=== PATIENT | male | born 1990 | race Caucasian/White ===

== ENCOUNTER 2017-01-02 12:20 | Emergency (ER) | payer OTHER ==
[~2017-01-02] VITALS: Ht 193 cm; Wt 109.1 kg
[2017-01-02 12:30] VITALS: BP 129/76; PULSE 75; RESP 12; O2SAT 97
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
== END 2017-01-02 13:24 | disposition home or self-care (01) ==
LOC: SED 12:20
DX: S60.942A Unspecified superficial injury of right middle finger, initial encounter (principal); W46.1XXA Contact with contaminated hypodermic needle, initial encounter; Y92.9 Unspecified place or not applicable; Y93.89 Activity, other specified; Y99.0 Civilian activity done for income or pay; Z77.21 Contact with and (suspected) exposure to potentially hazardous body fluids

== ENCOUNTER 2017-03-19 05:07 | Emergency (ER) | payer OTHER ==
[2017-03-19 05:12] VITALS: BP 150/86; PULSE 72; RESP 16; O2SAT 98
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
[2017-03-19] MEDS ORDERED: Dexamethasone 20 mg/2 mL Oral Solution PO ONE (05:20)
[2017-03-19] MEDS ORDERED: Albuterol-Ipratropium 3 mL Inhalation Solution NEB ONE (05:20)
[2017-03-19] MEDS ORDERED: _Proair 200 Puff/8.5 GM Inhaler INHALATION PRN (05:20)
[2017-03-19] MEDS ORDERED: Albuterol 2.5 mg/3 mL Inhalation Solution NEB ONE (05:20)
[2017-03-19 05:28] VITALS: PULSE 78; RESP 18; O2SAT 98
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
== END 2017-03-19 06:07 | disposition home or self-care (01) ==
LOC: SED 05:11
DX: J70.5 Respiratory conditions due to smoke inhalation (principal); J98.9 Respiratory disorder, unspecified; X08.8XXA Exposure to other specified smoke, fire and flames, initial encounter; Y93.89 Activity, other specified; Y92.9 Unspecified place or not applicable; Y99.0 Civilian activity done for income or pay
CPT/HCPCS: 71010; 94640; 99284; J7613; J7620